=== PATIENT | female | born 1945 | race American Indian/Alaskan Native ===

== ENCOUNTER 2017-05-31 20:23 | Emergency (ER) | payer MEDICARE, OTHER ==
[~2017-05-31] VITALS: Ht 157.5 cm; Wt 59.0 kg
[2017-05-31] MEDS ORDERED: VENLAFAXINE H37.5 M1 (20:36)
[2017-05-31] MEDS ORDERED: AMITRIPTYLINE H25 MG (20:37)
[2017-05-31] MEDS ORDERED: CYCLOBENZAPRINE10 MG (20:37)
[2017-05-31] MEDS ORDERED: NAPROXEN250 MG (20:37)
[2017-05-31] MEDS ORDERED: SULFAMETHOXAZO1 EAC1 (20:38)
[2017-05-31] MEDS ORDERED: ATORVASTATIN CA20 MG (20:38)
[2017-05-31] MEDS ORDERED: SIMVASTATIN40 MG (20:38)
[2017-05-31] MEDS ORDERED: NORCO 5-325 TA1 EACH PO (21:44)
[2017-05-31] MEDS ORDERED: CRUTCH1 EACH (21:54)
== END 2017-05-31 22:00 | disposition home or self-care (01) ==
LOC: ED 20:23
DX: S20.211A Contusion of right front wall of thorax, initial encounter (principal); S70.01XA Contusion of right hip, initial encounter; E78.00 Pure hypercholesterolemia, unspecified; I10 Essential (primary) hypertension; F32.9 Major depressive disorder, single episode, unspecified; Z88.5 Allergy status to narcotic agent; Z79.899 Other long term (current) drug therapy; W22.8XXA Striking against or struck by other objects, initial encounter
CPT/HCPCS: 71101; 73502; 99283